=== PATIENT | male | born 1955 | race Caucasian/White ===

== ENCOUNTER 2022-11-28 06:20 | Day surgery (SDC) | payer OTHER ==
[2022-11-26 13:53] LABS: Absolute Lymphocytes (CBC) 1.5 K/uL (0.7-4.9); Hematocrit 44.3 % (39.6-49.0); Lymphocytes % 21.3 % (15.3-44.8); MCV 86.9 fL (80-100); MPV 7.7 fL (7.6-11.3)
[2022-11-26 14:02] LABS: Potassium 4.1 mmol/L (3.5-5.1)
--- NOTE | 2022-11-26 14:44 | RAD REPORT ---
EXAM DESCRIPTION: [facility] (2 Views)11/26/2022 1:55 pm CLINICAL HISTORY: Preop COMPARISON: No comparisons TECHNIQUE: PA and lateral views of the chest. FINDINGS: The lungs are clear. No pneumothorax or effusion. The cardiomediastinal contours are unrem arkable. IMPRESSION: No acute cardiopulmonary process.
--- NOTE | 2022-11-26 18:37 | EKG ---
Test Date: 2022-11-26 Test Time: 13:35:06 Dehydrator Tender: GRISEL MEASUREMENT RESULTS: Intervals: Rate: 58 ID: [id number] QRSD: 120 QT: 418 QTc: 410 [place]: P: 52 ID: [id number] QRS: 53 T: 54 INTERPRETIVE STATEMENTS: Sinus bradycardia Nonspecific intraventricular conduction delay Borderline ECG No previous ECG available for comparison Electronically Signed On 11-26-22 18:36:42 BIOLOGICAL TECHNICIAN by Jim Burks
[2022-11-28] MEDS ORDERED: Ringers Lactate 1,000 ML IV ONE (06:46)
[2022-11-28] MEDS ORDERED: FENTANYL CITR 100 MCG/2 ML ONE (07:10)
[2022-11-28] MEDS ORDERED: propofoL 200 MG/20 ML VIAL IV ONE (07:11)
[2022-11-28] MEDS ORDERED: LIDOCAINE 2% MPF 5 ML VIAL ONE (07:11)
[2022-11-28] MEDS ORDERED: MIDAZOLAM HCL 2 MG/2 ML INJ ONE (07:11)
[2022-11-28] MEDS ORDERED: ONDANSETRON 4 MG/2 ML VIAL ONE (07:14)
[2022-11-28] MEDS ORDERED: ROCURONIUM 50 MG/5 ML VIAL IV ONE (07:15)
[2022-11-28] MEDS ORDERED: GLYCOPYRROLATE 0.2 MG/ML SYR ONE (07:15)
[2022-11-28] MEDS ORDERED: NEOSTIGMINE 1 MG/ML -10 ML VIAL ONE (07:16)
[2022-11-28] MEDS ORDERED: CIPROFLOXACIN 400mg IV 400 MG/200 ML BAG IV ONE (07:44)
[2022-11-28] MEDS ORDERED: EPHEDRINE SULF 50 MG/ML VIAL ONE (08:22)
--- NOTE | 2022-11-28 09:19 | P.BOP ---
Preoperative diagnosis: incarcerated incisional ventral hernia Postoperative diagnosis: same, intrabdominal adhesions Primary procedure: Laparoscopic repair of incarcerated incisional ventral hernia with mesh 5cm Secondary procedure: Laparoscopic lysis of adhesions Estimated blood loss: <10cc Specimen: sac, content Findings: as above Anesthesia: General Complications: None Implants: ventralex large mesh Transferred to: Recovery Room Condition: Good
[2022-11-28 13:09] VITALS: BP 129/93; TEMP 97.2; O2SAT 98
--- NOTE | 2022-11-28 20:59 | OP ---
Date of Procedure: 11/28/2022 Surgeon: Amadeo Baum MD Preoperative Diagnosis: Incarcerated incisional ventral hernia. Postoperative Diagnoses: Incarcerated incisional ventral hernia, intraabdominal adhesions. Procedures: 1.Laparoscopic repair of incarcerated incisional ventral hernia with mesh. 2.Laparoscopic lysis of adhesions. Specimen: Hernia sac and content. Finding: Incarcerated omentum and falciform ligament over the ventral incisional hernia. There is a lso small bowel nearby with adhesions that have to be taken down. Estimated Blood Loss: Less than 10 cc. Anesthesia: General plus local. Implant: Ventralex large mesh. Indications: This is a case of a male, who comes to us with a midline ventral hernia. He has an inc ision in that area, but he claimed, it was only for a subcutaneous mass excision in the past. The he rnia is right over that incision. Normally, the way he describes it, it is not supposed to be passin g the fascia, but he has no complete details of the case, and I do not have any details of that case either, so he was diagnosed with incarcerated ventral hernia over the incision with benefits, alterna tives, and risks of laparoscopic possible open repair with the use of mesh most likely. I explained which include, but not limited to infection, bleeding, damage to adjacent structures, anesthesia comp lication, recurrence, [place] and even . He also understands this, may not relieve the symptoms. He might need more than 1 surgical intervention. He understands we will be using mesh in that area. P ros and cons of mesh use were discussed with the patient. All the questions were answered to his sat isfaction. He signed a consent. Description Of Procedure: Patient was brought to the operating room, placed in supine position. Ane sthesia was done without complication. Abdominal area was prepped and draped in usual sterile fashio n. Local anesthesia was applied to the infraumbilical area after a time-out was called. Incision wa s made in a periumbilical region. Incision was carried down to fascia, which was opened under direct vision. Peritoneum was encountered opened under direct vision. Vicryl #1 placed inside the fascia. Autumn trocar was carefully introduced. Pneumoperitoneum was obtained. Once we put the cameras in , we were able to diagnose the area. We indeed noted the hernia coming through the fascial defect on the area that the previous incision is. Pulling the omentum and the intestines with multiple adhesi ons over that area. So I placed 2 more trocars, 5 mm each one of them, left and right side and throu gh that incision, we were able then to introduce a LigaSure and carefully remove the adhesions to bess e sure we do not cause any enterotomies. Then, after that, the omentum was reduced from that area an d we can clearly see the hernia defect. It is about 5 cm area. Falciform ligament was also involved in that, so we had to dissect that area and separate it to make sure we clear the fascial edges. A counter incision was made in the skin area. That facilitated us to remove the hernia sac and also ap proximate the defect with multiple Vicryl #1 in a [id number]-af-tdeuc fashion. Then, after that, we proc eeded to measure the area and find out the large Ventralex mesh. It is what he needs in this area to overlap at least 3 x 5 cm. The mesh was placed in and the strap coming through the incision. The m esh was secured laparoscopically with the help of SorbaFix. The straps were removed. This figure-of -eight multiple Vicryl #1 was approximated and the fascia was closed creating air seal situation. We further circumferentially fixed the mesh to the anterior abdominal wall using SorbaFix circumferenti ally. After that, the mesh looked nice and flat against the abdominal wall. We looked at the area o f the lysis of adhesions with no bleeding, no enterotomies. At that moment, I proceeded to remove th e trocars under direct vision. Deflated the pneumoperitoneum. Closed the subcutaneous tissue with 3 -0 chromic. There is some fat tissue loss with a cavity present in that area. We closed and approxi mated the best we can to diminish the chance of seroma and then the skin was approximated with staple s. The Vicryl #1 was also used to close the periumbilical region. The patient tolerated the procedu re well. Patient was sent to recovery in stable condition. Disposition: Home. Activity: As tolerated. No heavy lifting. Follow in my office in 1 week. Call for appointment at [phone]. JUAN JOSE/LISSETT Voice ID: [id number] Report ID: [id number]
== END 2022-11-28 10:55 | disposition home or self-care (01) ==
LOC: OR 06:20
PROVIDERS: ATTEND Surgery
PROC: 0WUF4JZ Supplement Abdominal Wall with Synthetic Substitute, Percutaneous Endoscopic Approach (ICD-10-PCS; principal; 2022-11-28 07:30)
DX: K43.0 Incisional hernia with obstruction, without gangrene (principal); I10 Essential (primary) hypertension; K21.9 Gastro-esophageal reflux disease without esophagitis; Z88.0 Allergy status to penicillin
CPT/HCPCS: 93005; 85025; 80048; 36415; 88302; 71046; 49594; J2704; J2710; J2001; J2250; J3010; J7120; J2405; J0744